=== PATIENT | female | born 1965 | race Caucasian/White ===

== ENCOUNTER 2017-01-11 06:39 | Day surgery (SDC) | payer SELFPAY ==
[2017-01-10 12:13] VITALS: BMI 27.4
[2017-01-11] MEDS ORDERED: ceFAZolin SODIUM 1 GM VIAL ONE ×4 (07:31→20:21)
[2017-01-11] MEDS ORDERED: HEPARIN NA (PORCINE) 5,000 UNITS/ML 1ML VIAL ONE (07:31)
[2017-01-11] MEDS ORDERED: MIDAZOLAM HCL 2 MG/2 ML SINGLE DOSE VIAL ONE (07:42)
[2017-01-11] MEDS ORDERED: ROCURONIUM BROMIDE 50 MG/5 ML VIAL ONE ×2 (07:42→10:20)
[2017-01-11] MEDS ORDERED: SUCCINYLCHOLINE CHLORIDE 200 MG/10 ML VIAL ONE (07:42)
[2017-01-11] MEDS ORDERED: PROPOFOL 20 ML ONE ×16 (07:43→12:29)
[2017-01-11] MEDS ORDERED: EPINEPHrine/PF 1 MG/1 ML (1:1,000) AMPULE ONE (07:46)
[2017-01-11] MEDS ORDERED: BUPIVACAINE HCL/PF 0.25% (2.5MG/ML) 10 ML VIAL ONE (07:46)
[2017-01-11] MEDS ORDERED: LIDOCAINE HCL 1%, 10 MG/ML (20ML VIAL) ONE (07:46)
[2017-01-11] MEDS ORDERED: LIDOCAINE HCL/PF 2% SDV 5ML VIAL ONE (07:49)
[2017-01-11] MEDS ORDERED: DEXAMETHASONE SOD PHOSPHATE 4 MG/1 ML VIAL ONE (08:51)
[2017-01-11] MEDS ORDERED: ONDANSETRON 4 MG/2 ML VIAL ONE (08:51)
[2017-01-11] MEDS ORDERED: ceFAZolin SODIUM 1 GM VIAL IVPB ONE ×2 (08:55)
[2017-01-11] MEDS ORDERED: DESFLURANE GAS 240 ML BOTTLE IH ONE (10:13)
[2017-01-11] MEDS ORDERED: HYDROmorphone HCL/PF 1 MG/ML VIAL (FOR PYXIS CHARGING ONLY) ONE (10:32)
[2017-01-11] MEDS ORDERED: GLYCOPYRROLATE 0.2 MG/1 ML VIAL ONE (13:00)
[2017-01-11] MEDS ORDERED: NEOSTIGMINE METHYLSULFATE 0.5 MG/ML - 10 ML MDV ONE (13:00)
[2017-01-11] MEDS ORDERED: BACITRACIN 15 GM TUBE TOPICAL OINTMENT ONE (13:37)
[2017-01-11] MEDS ORDERED: BACITRACIN 15 GM TUBE TOPICAL OINTMENT TP ONE (13:46)
[2017-01-11] MEDS ORDERED: PROMETHAZINE HCL 25 MG/1 ML VIAL IVPUSH PRN (14:05)
[2017-01-11] MEDS ORDERED: morphine CARPU-JECT 2 MG/1 ML DISP.SYRIN IVPUSH PRN (14:09)
[2017-01-11] MEDS ORDERED: oxyCODONE HCL 5 MG TABLET PO PRN (14:09)
[2017-01-11] MEDS ORDERED: ONDANSETRON 4 MG/2 ML VIAL IVPB PRN (14:09)
[2017-01-11] MEDS ORDERED: LACTATED RINGERS SOLUTION 1,000 ML IV SCH (14:15)
--- NOTE | 2017-01-11 14:16 | OP ---
Operative Note - Note: Operative Date: 01/11/17 Pre-Operative Diagnosis: abdominal deformity Operation: abdominoplasty Post-Operative Diagnosis: Same as Pre-op Surgeon: [employer] Librarian: Sony Mata Anesthesia: General Estimated Blood Loss (mls): 200 Drains & Tubes with Location: VAL x 3
--- NOTE | 2017-01-11 15:06 | OP ---
DATE OF OPERATION: 01/11/2017 PROCEDURE: Abdominoplasty. PREOPERATIVE DIAGNOSIS: Abdominal deformity. POSTOPERATIVE DIAGNOSIS: Abdominal deformity. SURGEON: Patrick Jimenez MD DESCRIPTION OF PROCEDURE: The patient was seen in the holding area, counseled on all risks, benefits, and alternatives of the procedure. She was marked wide awake and standing, awake and aware of all incisions and resulting scars. The patient received 5000 units of subcutaneous heparin preoperatively. Sequential compression stockings were applied as well as NANNETTE hose in the holding area. She has been brought to the operating room and placed in supine position. Positioning was carefully checked by surgical and anesthesia teams. She is given a gram of Ancef preoperatively. Noonan catheter is placed preoperatively, which is then removed at the end of the procedure. The patient is entirely padded, secured to the patient. After prep and drape in a standard surgical fashion, a time-out was called. The patient, procedure, site, and sides were verified. At this point, an incision was made along the infrapannicular crease. Dissection was carried down to the level of the abdominal wall fascia. Large perforating blood vessels as well as the superficial inferior epigastric and superficial circumflex iliac vessels are identified and suture ligated where necessary. Dissection was carried down to the level of the umbilicus where the umbilicus was then circumcised and developed on a fiber fatty stalk to the level of the abdominal wall fascia. The abdominoplasty flap is dissected to the level of the xiphoid process and the costal margins bilaterally. At this point, a midline plication is then performed in 2 layers, the first layer being a series of interrupted buried [id number] 1 Prolene suture followed by running, locking 1 Prolene suture both superior and inferior to the umbilicus. Bilateral transverse accessory row plications were performed with running, locking 1 PDS suture in areas of the transverse abdominal wall fascia, which appear to be persistently lax and distended. This is corrected by the suture plication. Several interrupted sutures are likewise placed to reinforce the running closure on each of these lateral transverse accessory suture lines. At this point, the flap is then trimmed of all subscarpus fat with tangential face lift scissor technique. Hemostasis is meticulously achieved. The wounds are copiously irrigated, and the patient is brought to a 30-degree flexed position where the abdominoplasty flaps are measured for transection, and transection is then performed, again, with hemostasis once again assured. The position of the umbilicus is marked. A star trek pattern defect is cut in the abdominoplasty flap for translocation of the umbilicus. The umbilicus is then converted into a star trek pattern. Umbilicus is translocated through the defect with the 6 o'clock flap being inset into the 6 o'clock notch over the umbilicus. The insets are performed with a series of interrupted buried deep dermal 3-0 Monocryl sutures followed by a series of interrupted and running 4-0 nylon suture. Size 10 flap J-P drains were brought out through the abdominal incision. Midline drain is sent to the superior midline. A right and left drain are placed on each of those apices of the incision. All drains are secured with 3-0 silk drain suture. A mons reduction is then performed trimming excess mons skin and fat to the extent that can be closed without tension and delivering a lift of the mons pubis to the skin and tissue. Closure is then performed with a series of buried fascial system Anusha layer 2-0 Vicryl with then a series of interrupted buried deep dermal 3-0 Monocryl sutures followed by a running subcuticular 3-0 Monocryl suture. Several 5-0 nylon sutures were placed within the skin to perfect the suture line. The patient tolerated the procedure well, transferred in a flexed position to her hospital bed. The patient is awoken from anesthesia and transferred to recovery with an abdominal wall binder. Bacitracin and Xeroform to the umbilicus. Transferred to recovery without complications. Mariam [id number]
[2017-01-11] MEDS: CEFAZOLIN 1 GM in DEXTROSE 5%-WATER - 50 ML IVPB SCH ×2 (15:45→21:24)
[2017-01-11] MEDS: LACTATED RINGERS SOLUTION 1,000 ML IV SCH (16:00)
--- NOTE | 2017-01-11 17:29 | SURG ---
Surgery Director Drug Note Director Drug: Sony Mata PA-C Date of Service: 01/11/17 Diagnosis: abdominal wall deformity Procedure: Billable time Time in: 12:15 Time out: 13:15 abdominoplasty I was present for the entirety of the operative procedure. For further detail, please refer to operative report. Visit type - Case Type Case Type: Elective Cosmetic Proced
[2017-01-11] MEDS ORDERED: DEXTROSE 5%-WATER - 50 ML IVPB ONE (20:21)
[2017-01-11] MEDS: oxyCODONE HCL 5 MG TABLET PO PRN (21:28)
[2017-01-12] MEDS: CEFAZOLIN 1 GM in DEXTROSE 5%-WATER - 50 ML IVPB SCH ×2 (02:03→16:20)
[2017-01-12] MEDS ORDERED: HEPARIN NA (PORCINE) 5,000 UNITS/ML 1ML VIAL SQ SCH (08:00)
[2017-01-12] MEDS ORDERED: CEFAZOLIN 1 GM in DEXTROSE 5%-WATER - 50 ML IVPB ONE (09:15)
[2017-01-12] MEDS ORDERED: DEXTROSE 5%-WATER - 50 ML IVPB ONE (09:44)
[2017-01-12] MEDS ORDERED: ceFAZolin SODIUM 1 GM VIAL ONE (09:44)
[2017-01-12 12:08] VITALS: BP 110/67; PULSE 72; TEMP 98.2
--- NOTE | 2017-01-12 12:18 | PN ---
Progress Note (short form) - Note Progress Note: healing well, no complications, VSS AF, ok for discharge
[2017-01-12] MEDS: oxyCODONE HCL 5 MG TABLET PO PRN (13:51)
[2017-01-12] MEDS: LACTATED RINGERS SOLUTION 1,000 ML IV SCH (16:20)
--- NOTE | 2017-01-15 14:19 | PATH ---
Surgical Pathology Report Patient Name: THERESA OLVERA [facility]. Rec. #: [id number] /Age/Gender: 1965 (Age: 51) / F Account: [id number] Location: AMBULATORY SURG Taken: 01/11/2017 Received: 01/14/2017 Reported: 01/15/2017 Physicians: Patrick Jimenez Specimen(s) Received A: LEFT ABDOMINAL TISSUE(2,538) LBS B: RIGHT ABDOINAL TISSUE (2,756) LBS Clinical History Cosmetic, abdominal deformity/excess abdominal skin Final Diagnosis A. ABDOMINAL TISSUE, LEFT, ABDOMINOPLASTY: GROSSLY UNREMARKABLE SKIN AND SUBCUTANEOUS TISSUE (GROSS EXAM). B. ABDOMINAL TISSUE, RIGHT, ABDOMINOPLASTY: GROSS AND UNREMARKABLE SKIN AND SUBCUTANEOUS TISSUE (GROSS EXAM). Electronically Signed Moreno Ordonez M.D. Gross Description A. Received in formalin, labeled left abdominal tissue 2.538 lbs" is 1150 gm in aggregate weight, two fragments of braga skin with underlying fatty tissue measuring 23 x 18 x 4 cm and 7 x 2.5 x 3.5 cm. The specimen is for gross examination only. B. Received in formalin, labeled "right abdominal tissue 2,756 lbs" is 1255 gm in aggregate weight, two fragments of braga skin with underlying fatty tissue measuring 24 x 18.5 x 4.3 cm and 6 x 2.5 x 1.8 cm. The specimen is for gross examination only. AF/01/14/2017 final/01/14/2017
== END 2017-01-12 16:04 | disposition home or self-care (01) ==
LOC: JASUSAT 06:39 → J8W 16:19 → JASUSAT 01-12 16:04
PROVIDERS: ATTEND Plastic Surgery
PROC: 0J080ZZ Alteration of Abdomen Subcutaneous Tissue and Fascia, Open Approach (ICD-10-PCS; principal; 2017-01-11 08:00)
DX: M95.8 Other specified acquired deformities of musculoskeletal system (principal)
CPT/HCPCS: 84703; 88300-TC; 94760; J1644